=== PATIENT | female | born 1965 | race Caucasian/White ===

== ENCOUNTER 2025-05-21 17:46 | Emergency (ER) | payer MEDICARE, MEDICAID ==
[2025-05-21] MEDS: KETOROLAC 30 MG/ML 1 ML VIAL IV ONE (20:09)
[2025-05-21 20:10] VITALS: TEMP 98.1
[2025-05-21] MEDS: LIDOCAINE 5% PATCH TD ONE (20:10)
[2025-05-21] MEDS ORDERED: IBUP600T42 PO (20:48)
[2025-05-21] MEDS ORDERED: LIDO1ADH93 TD (20:48)
[2025-05-21 21:24] VITALS: BP 137/87
[2025-05-21] MEDS: NORCO 5/325MG TABLET (HOME DOSE PACK) PO ONE (21:26)
[2025-05-21 21:31] VITALS: O2SAT 98
[2025-05-21] MEDS: ONDANSETRON 4MG ORAL DISINTEGRATING TAB PO ONE (21:37)
== END 2025-05-21 21:50 | disposition home or self-care (01) ==
LOC: EDBD 17:46 → M ED 17:46
DX: S20.212A Contusion of left front wall of thorax, initial encounter (principal); Y92.9 Unspecified place or not applicable; Y93.9 Activity, unspecified; Y99.9 Unspecified external cause status; E78.5 Hyperlipidemia, unspecified; F32.A Depression, unspecified; Z79.1 Long term (current) use of non-steroidal anti-inflammatories (NSAID); Z79.899 Other long term (current) drug therapy
CPT/HCPCS: 71046; 71250; 96374; 99284; J1885